=== PATIENT | male | born 1955 | race Hispanic/Latino ===

== ENCOUNTER 2020-10-13 22:02 | Observation (INO) | payer SELFPAY ==
[~2020-10-13] VITALS: Ht 162.6 cm; Wt 55.3 kg
[2020-10-13 22:45] LABS: HEMATOCRIT 29.5 % (39.0-50.0); HEMOGLOBIN 10.1 g/dl (14.0-18.0); IMMATURE GRANULOCYTES 0.3 % (0.0-5.0); MEAN CELL VOLUME 91.3 fL CALC (80.0-100.0); MEAN CORPUSCULAR HGB 31.3 pG CALC (26.0-32.0); MEAN CORPUSCULAR HGB CONC 34.2 g/dL CAL (32.0-36.0); NEUT# 1.62 thou/uL (1.82-7.42); RED BLOOD COUNT 3.23 mill/uL (4.70-6.10); RED CELL DISTRI WIDTH 14.3 % (11.5-15.5)
--- NOTE | 2020-10-13 22:49 | NUR ---
PATIENT REPORTS INJURING LEFT ANKLE YESTERDAY AGAINST A CEMENT BLOCK. PATIENT REPORTS THAT HE IS NOT ABLE TO WALK ON LEFT LOWER EXTREMITY TODAY
[2020-10-13 23:00] LABS: ALBUMIN 3.8 g/dL (3.2-5.0); ALKALINE PHOSPHATASE 117 u/l (38-126); ANION GAP 17 (6-22 (CALC)); BILIRUBIN, TOTAL 0.3 mg/dL (0.0-1.4); BUN 8 mg/dL (8-23); BUN/CREATININE RATIO 10 (12-20 (CALC)); CARBON DIOXIDE 21 mmol/l (22-30); CHLORIDE 95 mmol/l (95-108); CREATININE 0.8 mg/dL (0.7-1.3); GFR > 60 ML/MIN (>=60 (CALC)); GFR FOR AFR.AMER. > 60 ML/MIN (>=60 (CALC)); LIPASE 295 u/l (23-300); POTASSIUM 3.4 mmol/l (3.5-5.1); SGOT/AST 96 u/l (19-48); SODIUM 129 mmol/l (137-146); TOTAL PROTEIN 7.5 g/dL (6.3-8.2)
[2020-10-13 23:09] LABS: ETHYL ALCOHOL 382 mg/dl (0-30)
--- NOTE | 2020-10-13 23:35 | NUR ---
INCONTINENCE OF URINE NOTED. AWAITING URINE SAMPLE
[2020-10-14 06:15] LABS: URINE BILIRUBIN - DIPSTICK NEGATIVE (NEGATIVE); URINE BLOOD DIPSTICK MODERATE (NEGATIVE); URINE COLOR YELLOW; URINE GLUCOSE - DIPSTICK NEGATIVE (NEGATIVE); URINE KETONE NEGATIVE (NEGATIVE); URINE PH 5.5 (4.5-8.0); URINE PROTEIN - DIPSTICK 30 mg/dL (NEG-TRACE); URINE SPECIFIC GRAVITY <=1.005; URINE UROBILINOGEN - DIPSTICK 0.2 E.U./dL (0.2)
[2020-10-14 06:20] LABS: URINE LEUK ESTERASE NEGATIVE (NEGATIVE); URINE NITRITE - DIPSTICK NEGATIVE (Negative)
[2020-10-14 06:31] LABS: URINE EPITHELIAL CELLS FEW EPI/hpf (0-FEW)
[2020-10-14 06:33] LABS: URINE BACTERIA FEW hpf
--- NOTE | 2020-10-14 06:49 | NUR ---
PATIENT REMAINS INTOXICATED. UNABLE TO FOLLOW DIRECTIONS TO USE CRUTCHES. VOIDED ON SELF X2 AND VOIDED TO COMMODE/MISSED COMMODE TO FLOOR. BM TO COMMODE. SATURATED CLOTHING REMOVED. PAPER SCRUB PANTS PROVIDED. SKIN CARE AND LINEN CHANGE DONE. DR ASCENCIO UPDATED. DISCUSSED POSIBBLE ADMIT. PLAN FOR PATIENT TO REMAIN IN ED TO MONITOR ALCOHOL LEVEL AND ABILITY TO FOLLOW DIRECTIONS.
--- NOTE | 2020-10-14 06:57 | NUR ---
ATTEMPTED CRUTCH TRAINING. PT UNABLE TO FOLLOW INSTRUCTIONS. RE-TEACHING NEEDED.
--- NOTE | 2020-10-14 07:07 | NUR ---
received for care,resting quietly. Stable.
--- NOTE | 2020-10-14 07:31 | NUR ---
DR TO BEDSIDE TO DISCUSS POC AND FINDINGS.
--- NOTE | 2020-10-14 08:20 | NUR ---
Food tray givrn, patient positioned and comfortable.
--- NOTE | 2020-10-14 09:36 | NUR ---
PATIENT RESTING QUIETLY, AWAITING TRANFER TO THE FLOOR.
--- NOTE | 2020-10-14 10:12 | NUR ---
REPORT CALLED TO COCO MIRANDA
--- NOTE | 2020-10-14 10:17 | NUR ---
PATIENT CAME FROM ER VIA STRETCHER BY NURSE RUBEN PATEL.
--- NOTE | 2020-10-14 10:20 | NUR ---
TRANSFERRED TO FLOOR, STABLE UPON ARRIVAL
[2020-10-14 11:15] VITALS: BP 172/83
--- NOTE | 2020-10-14 11:46 | NUR ---
ASSESSMENT DONE. PATIENT IS ALERT AND ORIENT X2 BUT CONFUSED AT TIMES. PATIENT IS A POOR HISTORIAN. RESPS EVEN AND UNLABORED. TELE IN PLACE. IVF INFUSING WELL. PATIENT HAS A LEFT SLPINT IN FOOT. PATIENT STATED PAIN IN LEFT FOOT. MEDICATED PATIENT WITH MOTIRN. PATIENT HAS RIGHT LEG PEELING OF THE SKIN AND ABRASION IN HIS BUTTOCKS. PATIENT STATED HE IS HOMELESS. SAFETY PRECAUTIONS REINFROCED AND CALL LIGHT IN REACH.
[2020-10-14 14:45] VITALS: BP 173/75
[2020-10-14 15:28] VITALS: BP 164/75
--- NOTE | 2020-10-14 15:29 | NUR ---
PATIENT IS RESTING IN BED. PATIENT BP IS 164/75 AND MEDICATED PATIENT WITH APRESOLINE. PATIENT DENIES NEEDS AT THIS TIME. BED ALARM IN PLACE AND CALL LIGHT IN REACH.
[2020-10-14 17:47] VITALS: BP 145/76
[2020-10-14 20:00] VITALS: BP 156/91
[2020-10-15] VITALS: BP 182/82
[2020-10-15 04:00] VITALS: BP 133/84
[2020-10-15 05:53] LABS: BUN 9 mg/dL (8-23); BUN/CREATININE RATIO 13 (12-20 (CALC)); CARBON DIOXIDE 22 mmol/l (22-30); CREATININE 0.7 mg/dL (0.7-1.3); GFR > 60 ML/MIN (>=60 (CALC)); GFR FOR AFR.AMER. > 60 ML/MIN (>=60 (CALC)); MAGNESIUM 1.2 mg/dL (1.6-2.3)
[2020-10-15 06:12] LABS: ANION GAP 11 (6-22 (CALC)); CHLORIDE 107 mmol/l (95-108); SODIUM 137 mmol/l (137-146)
[2020-10-15 07:25] VITALS: BP 169/85
--- NOTE | 2020-10-15 07:29 | NUR ---
PT LAYING IN BED. A&O X3. NO DISRTRESS NOTED. [place] SPEAKING ONLY. CALM AND COOPERATIVE. CIWA ASSESSMENT COMPLETED AT THIS TIME. PT DENIES N&V, HALLUCINATIONS. SLIGHT TREMOR NOTED TO BRAYDEN EXTREMITY UPON EXTENSION. PT C/O OF PAIN IN LLE. LLE SPLINT IN PLACE. PER PT HE WAS FIXING A HOME, AND A BRICK FELL ON HIS LT ANKLE, 1 1/2 WKS AGO. CLEAR BREATH SOUNDS UPON AUSCULTATION. ACTIVE BOWEL SOUNDS X4 QUADRANTS. ASSESSMENT COMPLETED. DISCUSSED POC. BED ALARM IN PLACE FOR SAFETY. CALL LIGHT WITHIN REACH.
[2020-10-15] MEDS ORDERED: COZAAR25 MG PO (10:05)
[2020-10-15 10:15] VITALS: BP 158/82
[2020-10-15 10:31] VITALS: BP 169/85
--- NOTE | 2020-10-15 10:50 | NUR ---
DR SAENZ AND Ayush RINCON APRN AT BEDSIDE DISCUSSING POC
--- NOTE | 2020-10-15 11:20 | NUR ---
PT AGITATED AND WANTING TO LEAVE NOW. INSTRUCTED PT IMPORTANCE OF COMPLETING MAGNESIUM SULFATE. PT REQUESTING TO LEAVE AT THIS MOMENT "NOW". IV REMOVED UPON PATIENTS REQUEST. SPLINT TO LLE IN PLACE, PT WANTING TO REMOVE SPLINT. EXPLAINED TO THE PT THE IMPORTANCE OF KEEPING THE SPLINT IN PLACE,PER PT "DO YOU KNOW HOW EMBARASSING IT IS GOING TO BE WALKING AROUND IN THIS", PT REMOVING SPLINT AT THIS TIME STATING "I DO NOT CARE, I AM TAKING THIS OFF I AM FEELING BETTER ALREADY" "MY FOOT CAN ROT I DO NOT CARE". AWARE. KAUSHIK HILLMAN APPROVAL BY [facility] [employer].
--- NOTE | 2020-10-15 12:05 | NUR ---
Discharge instructions given. Patient verbalizes understanding of same. Discharged in stable condition via wheelchair to home accompanied by staff, tramaine chiu approved by [facility] Schwartz nursing stockroom supervisor.
== END 2020-10-15 12:00 | disposition home or self-care (01) | DRG 897 ==
LOC: ED 22:02 → ED-I 10-14 08:00 → ED 10-14 08:21 → MS2 10-14 08:22
PROVIDERS: Emergency Medicine; Nurse Practitioner; ADMIT Internal Medicine; ATTEND Internal Medicine
PROC: 2W3RX1Z Immobilization of Left Lower Leg using Splint (ICD-10-PCS; principal; 2020-10-14)
DX: F10.129 Alcohol abuse with intoxication, unspecified (principal); E87.1 Hypo-osmolality and hyponatremia; S82.62XA Displaced fracture of lateral malleolus of left fibula, initial encounter for closed fracture; E87.6 Hypokalemia; I10 Essential (primary) hypertension; W19.XXXA Unspecified fall, initial encounter; Y92.89 Other specified places as the place of occurrence of the external cause; Y90.8 Blood alcohol level of 240 mg/100 ml or more; Z59.0 Homelessness; Z20.822 Contact with and (suspected) exposure to COVID-19
CPT/HCPCS: G0378; J3475